=== PATIENT | female | born 1995 | race Caucasian/White ===

== ENCOUNTER 2019-06-04 15:47 | Day surgery (SDC) | payer OTHER ==
[2019-06-04 16:39] VITALS: BMI 31.9
[2019-06-04] MEDS ORDERED: hydrALAZINE 20 MG/ML VIAL SLOW IVP PRN (16:59)
--- NOTE | 2019-06-04 17:11 | PDOC.FPROB ---
[facility] OB H&P: Medications - Current Home Medications: Medication Instructions Recorded Confirmed Type Pnv No.95/Ferrous Fum/Folic AC 1 each PO 06/04/19 History [ Caplet] buPROPion HCl [buPROPion HCl XL] 300 mg PO DAILY 06/04/19 06/04/19 History Allergies/Adverse Reactions: Allergies Allergy/AdvReac Type Severity Reaction Status Date / Time No Known Allergies Allergy Unverified 06/04/19 16:34 [facility] OB H&P: A/P - Problem List (1) Status: Acute Discussion: Date/Time: 06/04/19 1710 PCP: Nohemy HPI: Patient comes in for leakage of fluid. Thinks she had a small gush of fluid around 0100 and has had persistent leakage since that time. She states she has had 1 contraction today. Clear discharge, no bleeding. Still feels baby moving often. Chronic headache for the last week or so, better with Tylenol. No scotoma , epigastric pain, SOB, or swelling. Patient states she has had burning with urination for the past 3 days. She denies noticing blood in the urine. History: OB hx: @ 37.0 wks PMH: denies asthma, HTN, DM PSH: cholecystectomy Meds: PNV All: NKDA Soc Hx: denies smoking, alcohol, drugs Fam Hx: denies downs, congenital defects REVIEW OF SYSTEMS: Gen: no fever, chills, or sweats Neuro: no numbness/tingling, no weakness ENT: denies congestion Eyes: no visual changes Resp: denies cough, no production, no SOB, no wheeze Card: denies chest pain, no palpitations GI: denies nausea, vomiting, diarrhea : no dysuria, no hematuria Skin: no rash, no erythema Psych: denies hx anxiety/depression Vitals: T: 98.3 R: 18 BP: 116/67 P:76 at: 98% on RA PHYSICAL EXAMINATION: General: NAD, alert and oriented x3 HEENT: EOMI, normal sclera Neck: Supple. Full ROM. Heart/Cardiovascular System: RRR, Cap refill < 3 seconds, no rub, no murmur Lungs/Respiratory System: clear to auscultation bilaterally. No increased work of breathing. Room air. Abdomen/Gastro-Intestinal System: no abdominal tenderness, normal bowel sounds, Gravid Extremities: Warm extremities. No cyanosis or edema. Neuro: No gross deficits appreciated Psychiatry: Awake, Alert and cooperative with exam Skin: no lesions, no rashes Musculoskeletal: Full ROM A/P: This is a 24 yo at 37.2 wks here for r/o ROM FHT: 130 baseline, mod variability, no decels, accels present [place]: irregular cxns # R/O ROM -No pooling on spec exam -Amnisure negative -Cl/th/high -Irregular cxns -Home with precautions # Dysuria - U/a negative, Addendum - Attending - Attending Attestation Date/Time: 06/04/192003 I personally evaluated the patient and discussed the management with Dr. Coello. at term c/o ?LOF. SSE and Amnisure are negative. Home with precautions, Dr. Slater notified. I agree with the History, Examination, Assessment and Plan documented above.
[2019-06-04 17:44] LABS: Bacteria/HPF None Seen HPF (None Seen); Bilirubin Negative (Negative); Blood, Urine Negative (Negative); Clarity Clear (Clear); Glucose, Urine (Dipstick) Normal (Negative); Leukocyte Negative Leu/uL (Negative); Nitrite Negative (Negative); Protein, Urine (Dipstick) Negative (Neg-Trace); RBC/HPF 0-3 HPF (0-3); Squamous Epithelial 0-3 HPF (0-3); Urobilinogen Normal mg/dL (Less than 2); WBC/HPF 0-3 HPF (0-3)
[2019-06-04 17:47] LABS: Urine Culture Reflex No No
[2019-06-04 17:56] LABS: Amnisure Test No Membranes Rupture (No Rupture)
[2019-06-04 17:57] LABS: Amnisure Internal Control QC ACCEPTABLE (ACCEPTABLE)
[2019-06-04] MEDS ORDERED: FLU VACC QS2019-20(6MOS UP)/PF 60 MCG/0.5 ML SYRINGE IM ONE (21:00)
== END 2019-06-04 18:26 | disposition home or self-care (01) ==
LOC: L&D/OP 15:47
PROVIDERS: ATTEND Obstetrics & Gynecology
DX: O47.1 False labor at or after 37 completed weeks of gestation (principal); O99.89 Other specified diseases and conditions complicating pregnancy, childbirth and the puerperium; R30.0 Dysuria; Z3A.37 37 weeks gestation of pregnancy; Z79.899 Other long term (current) drug therapy; Z90.49 Acquired absence of other specified parts of digestive tract
CPT/HCPCS: 81001; 84112

== ENCOUNTER 2019-06-16 19:34 | Inpatient (IN) | payer OTHER ==
[~2019-06-16 19:34] MED LIST: Bupivacaine HCl 0.5%/Epinephrine 1:200,000/PF 30 ml Vial ONE; Bupivacaine/Epinephrine 0.25% 30 ML VIAL ONE
[2019-06-16] MEDS: Lactated Ringer's 1,000 ML IV SCH (21:30)
[2019-06-16 23:23] LABS: Hemoglobin 12.5 g/dL (12.0-16.0); Mean Corpuscular HGB CONC 35.8 g/dL (32.0-36.0); Mean Corpuscular Hemoglobin 33.8 pg (27.0-31.0); Mean Corpuscular Volume 94.3 fL (78.0-98.0); Mean Platelet Volume 8.7 fL (7.4-10.4); Platelet Count 178 thou/uL (130-400); RBC Distribution Width 11.4 % (11.5-14.5); Red Blood Cell (RBC) Count 3.69 mill/uL (4.20-5.40); White Blood Cell (WBC) Count 9.7 thou/uL (4.8-10.8)
[2019-06-17 00:03] LABS: Syphilis Antibody Nonreactive (Nonreactive); Syphilis Antibody Index 0.08 S/CO (<1.00 Non-Reactive)
[2019-06-17] MEDS ORDERED: Fentanyl 4 mcg/Bup 0.1% Cadd 100 ML ONE (00:09)
[2019-06-17 00:10] LABS: HBSAg Index 0.13 S/CO (0-0.99); Hep B Surf Ag Non-Reactive S/CO (NonReactive)
[2019-06-17] MEDS: Lactated Ringer's 1,000 ML IV SCH ×2 (00:15→02:50)
[2019-06-17] MEDS ORDERED: Lidocaine 1% PF 5 ML VIAL ONE (00:26)
[2019-06-17] MEDS ORDERED: Lidocaine 1.5%/Epinephrine 1:200,000 5 ML AMPUL IJ ONE (00:27)
[2019-06-17] MEDS ORDERED: Promethazine HCl 25 MG/ML VIAL IM PRN ×2 (01:00→03:45)
[2019-06-17] MEDS ORDERED: Naloxone HCl 0.4 mg/ml Vial IVP PRN ×2 (01:00)
[2019-06-17] MEDS ORDERED: Acetaminophen 325 MG TAB PO PRN (01:00)
[2019-06-17] MEDS ORDERED: Ondansetron PF 4 MG/2 ML Vial IVP PRN ×3 (01:00→04:51)
[2019-06-17] MEDS ORDERED: ePHEDrine/0.9% NaCl/PF SYRINGE 50 mg/10 ml SLOW IVP PRN (01:00)
[2019-06-17] MEDS ORDERED: Lactated Ringer's 500 ML IV PRN (01:00)
[2019-06-17] MEDS ORDERED: diphenhydrAMINE 50 MG/ML VIAL IVP PRN (01:00)
[2019-06-17] MEDS ORDERED: Communication Order-Pharmacy FS SCH (01:00)
[2019-06-17] MEDS ORDERED: Fentanyl 4 mcg/Bupivacaine 0.1% Cassette 100 ML EPIDURAL SCH (01:00)
[2019-06-17] MEDS ORDERED: Fentanyl 100 MCG/2 ML VIAL ONE (03:31)
[2019-06-17] MEDS ORDERED: NS / Oxytocin 40 units/1000ml 1,000 ML ONE (03:32)
[2019-06-17] MEDS ORDERED: Lidocaine 1% (PF) 30 ML VIAL ONE (03:33)
[2019-06-17] MEDS ORDERED: Diphenoxylate HCl/Atropine Tablet PO PRN ×2 (03:45)
[2019-06-17] MEDS ORDERED: Methylergonovine 0.2 MG/ML VIAL IM PRN (03:45)
[2019-06-17] MEDS ORDERED: Lidocaine 1% (PF) 30 ML VIAL SC PRN (03:45)
[2019-06-17] MEDS ORDERED: Ibuprofen 800 MG TAB PO PRN (03:45)
[2019-06-17] MEDS ORDERED: Acetaminophen 500 MG TAB PO PRN (03:45)
[2019-06-17] MEDS ORDERED: NS w/ Oxytocin 10 units 500 ML IV SCH ×2 (03:45)
[2019-06-17] MEDS ORDERED: Carboprost 250 MCG/ML AMP IM PRN (03:45)
[2019-06-17] MEDS ORDERED: hydrALAZINE 20 MG/ML VIAL SLOW IVP PRN ×2 (03:45→04:51)
[2019-06-17] MEDS ORDERED: Misoprostol 200 MCG TAB RC PRN (03:45)
[2019-06-17 04:01] VITALS: BMI 32.3
[2019-06-17] MEDS: NS / Oxytocin 40 units/1000ml 1,000 ML IV SCH ×2 (04:25→05:46)
[2019-06-17] MEDS ORDERED: Misoprostol 200 MCG TAB VAG PRN (04:51)
[2019-06-17] MEDS ORDERED: Milk Of Magnesia 30 ML UDCUP PO PRN (04:51)
[2019-06-17] MEDS ORDERED: Bisacodyl 10 MG SUPP PR PRN (04:51)
[2019-06-17] MEDS ORDERED: Zolpidem Tartrate 5 MG TAB PO PRN ×2 (04:51→11:20)
[2019-06-17] MEDS ORDERED: Acetaminophen/Codeine 30-300mg Tablet PO PRN ×4 (04:51→11:19)
[2019-06-17] MEDS ORDERED: Preparation H Ointment 28 GM TUBE PR PRN (04:51)
[2019-06-17] MEDS ORDERED: Lanolin Ointment 7 GM TUBE TOP PRN (04:51)
[2019-06-17] MEDS ORDERED: Benzocaine-Menthol 82.5 ML CAN TOP PRN (04:51)
[2019-06-17] MEDS ORDERED: diphenhydrAMINE 25 MG CAP PO PRN (04:51)
[2019-06-17] MEDS ORDERED: NS / Oxytocin 40 units/1000ml 1,000 ML IV SCH (05:00)
[2019-06-17] MEDS ORDERED: Docusate 100 MG CAP PO SCH (09:00)
[2019-06-17] MEDS ORDERED: FLU VACC QS2019-20(6MOS UP)/PF 60 MCG/0.5 ML SYRINGE IM ONE (09:00)
[2019-06-17] MEDS: Ferrous Sulfate 325 MG TAB PO SCH ×2 (09:06→16:17)
[2019-06-17] MEDS: Prenatal Vitamin 1 TAB PO SCH (09:12)
[2019-06-17] MEDS: Docusate Calcium (SURFAK) 240 MG CAP PO SCH (09:12)
[2019-06-17] MEDS: Ibuprofen 800 MG TAB PO SCH ×3 (09:12→17:55)
[2019-06-17] MEDS ORDERED: Adacel (T-DAP) 0.5 ML SYRINGE IM ONE (21:00)
[2019-06-18] MEDS: Docusate Calcium (SURFAK) 240 MG CAP PO SCH ×3 (02:20→20:54)
[2019-06-18] MEDS: Ibuprofen 800 MG TAB PO SCH ×4 (02:21→20:54)
[2019-06-18 06:37] LABS: Hemoglobin 12.1 g/dL (12.0-16.0)
[2019-06-18] MEDS: Ferrous Sulfate 325 MG TAB PO SCH ×2 (08:59→17:15)
[2019-06-18] MEDS: Prenatal Vitamin 1 TAB PO SCH (09:27)
[2019-06-19] MEDS: Ibuprofen 800 MG TAB PO SCH (06:00)
[2019-06-19 08:43] VITALS: BP 119/73; TEMP 98.2
[2019-06-19] MEDS: Ferrous Sulfate 325 MG TAB PO SCH (08:59)
[2019-06-19] MEDS: Prenatal Vitamin 1 TAB PO SCH (09:01)
[2019-06-19] MEDS: Docusate Calcium (SURFAK) 240 MG CAP PO SCH (09:01)
== END 2019-06-19 11:50 | disposition home or self-care (01) | DRG 807 ==
LOC: L&D/OP 19:34 → L&D 06-17 03:34 → 3SW 06-17 08:44
PROVIDERS: ADMIT Obstetrics & Gynecology; ATTEND Obstetrics & Gynecology
PROC: 10E0XZZ Delivery of Products of Conception, External Approach (ICD-10-PCS; principal; 2019-06-17)
PROC: 0HQ9XZZ Repair Perineum Skin, External Approach (ICD-10-PCS; 2019-06-17)
DX: O70.0 First degree perineal laceration during delivery (principal); Z37.0 Single live birth; Z3A.39 39 weeks gestation of pregnancy
CPT/HCPCS: 36415; 85014; 85018; 85027; 86780; 86850; 86900; 86901; 87340; J0670; J2001; J2405; J3010; J3490